=== PATIENT | male | born 1990 | race Caucasian/White ===

== ENCOUNTER 2017-07-28 14:26 | Emergency (ER) | payer OTHER ==
[2017-07-28] MEDS ORDERED: MORPHINE SULFATE 10 MG/ML INJ IV ONE ×2 (14:39→18:30)
[2017-07-28] MEDS ORDERED: ONDANSETRON HCL INJ/PF 4 MG/2 ML SDV IV ONE (14:39)
[2017-07-28] MEDS ORDERED: DEXAMETHASONE SOD PHOS INJ 10 MG/1 ML VIAL IV ONE (14:59)
[2017-07-28 15:20] LABS: ABSOLUTE BASOPHILS # (AUTO) 0.1 10^3/uL (0.0-0.2); ABSOLUTE LYMPHOCYTES (AUTO) 2.4 10^3/uL (0.5-4.7); ABSOLUTE MONOCYTES (AUTO) 2.4 10^3/uL (0.1-1.4); ABSOLUTE NEUT (AUTO) 13.4 10^3/uL (1.7-8.2); BASOPHILS % (AUTO) 0.3 % (0-2); EOSINOPHILS % (AUTO) 0.1 % (0-6); HEMATOCRIT 40.8 % (37.9-51.0); HEMOGLOBIN 14.3 g/dL (13.5-17.0); HGB HCT DIFFERENCE 2.1; LYMPHOCYTES % (AUTO) 13.3 % (13-45); MEAN CORPUSCULAR HEMOGLOBIN 32.3 pg (27.0-33.4); MEAN CORPUSCULAR VOLUME 92 fl (80-97); MONOCYTES % (AUTO) 12.9 % (3-13); RED BLOOD COUNT 4.42 10^6/uL (4.35-5.55); RED CELL DISTRIBUTION WIDTH 12.8 % (11.5-14.0); SEGMENTED NEUTROPHILS % (AUTO) 73.4 % (42-78); WHITE BLOOD COUNT 18.2 10^3/uL (4.0-10.5)
[2017-07-28 15:35] LABS: ANION GAP 17 (5-19); BLOOD UREA NITROGEN 9 mg/dL (7-20); CALCIUM 9.1 mg/dL (8.4-10.2); CARBON DIOXIDE 20 mmol/L (22-30); CHLORIDE 105 mmol/L (98-107); CREATININE RESULT 0.91 mg/dL (0.52-1.25); GLUCOSE 88 mg/dL (75-110); POTASSIUM 3.4 mmol/L (3.6-5.0); SODIUM 141.5 mmol/L (137-145)
--- NOTE | 2017-07-28 16:04 | RADIOLOGY REPORT (SQ) ---
EXAM DESCRIPTION: CT CERVICAL SPINE WITHOUT; CT HEAD WITHOUT COMPLETED DATE/TIME: 07/28/2017 3:24 pm REASON FOR STUDY: neck injury ; head and neck injury COMPARISON: None. TECHNIQUE: Axial images acquired through the brain and cervical spine without intravenous contrast. Images reviewed with brain, subdural, lung, soft tissue and bone windows. Reconstructed coronal and sagittal MPR images reviewed. Images stored on PACS. All CT scanners at this facility use dose modulation, iterative reconstruction, and/or weight based d osing when appropriate to reduce radiation dose to as low as reasonably achievable (ALARA). [facility]: Dose Right [facility]: CareDose [facility]: Dose Right [facility]: Teradose 4D [facility]: Smart [employer] RADIATION DOSE: CT Rad equipment meets quality standard of care and radiation dose reduction techniq ues were employed. CTDIvol: 17.7 mGy. DLP: 397 mGy-cm.; CT Rad equipment meets quality standard of ca re and radiation dose reduction techniques were employed. CTDIvol: 64.6 mGy. DLP: 1163 mGy-cm. mGy. LIMITATIONS: None. FINDINGS: Brain: No hemorrhage or mass or shift or hydrocephalus or fracture. No fluid levels in t he paranasal sinuses. Cervical spine: Normal alignment. No fracture or bone lesion. Soft tissues normal. Lung apices cl ear. IMPRESSION: 1. Normal CT brain. 2. Normal cervical spine CT. TECHNICAL DOCUMENTATION: JOB ID: [id number] Quality ID # [id number]: Final reports with documentation of one or more dose reduction techniques (e.g., Au tomated exposure control, adjustment of the mA and/or kV according to patient size, use of iterative reconstruction technique) 2010 [employer] - [employer]- All Rights Reserved
--- NOTE | 2017-07-28 16:04 | RADIOLOGY REPORT (SQ) ---
EXAM DESCRIPTION: CT CERVICAL SPINE WITHOUT; CT HEAD WITHOUT COMPLETED DATE/TIME: 07/28/2017 3:24 pm REASON FOR STUDY: neck injury ; head and neck injury COMPARISON: None. TECHNIQUE: Axial images acquired through the brain and cervical spine without intravenous contrast. Images reviewed with brain, subdural, lung, soft tissue and bone windows. Reconstructed coronal and sagittal MPR images reviewed. Images stored on PACS. All CT scanners at this facility use dose modulation, iterative reconstruction, and/or weight based d osing when appropriate to reduce radiation dose to as low as reasonably achievable (ALARA). [facility]: Dose Right [facility]: CareDose [facility]: Dose Right [facility]: Teradose 4D [facility]: Smart [employer] RADIATION DOSE: CT Rad equipment meets quality standard of care and radiation dose reduction techniq ues were employed. CTDIvol: 17.7 mGy. DLP: 397 mGy-cm.; CT Rad equipment meets quality standard of ca re and radiation dose reduction techniques were employed. CTDIvol: 64.6 mGy. DLP: 1163 mGy-cm. mGy. LIMITATIONS: None. FINDINGS: Brain: No hemorrhage or mass or shift or hydrocephalus or fracture. No fluid levels in t he paranasal sinuses. Cervical spine: Normal alignment. No fracture or bone lesion. Soft tissues normal. Lung apices cl ear. IMPRESSION: 1. Normal CT brain. 2. Normal cervical spine CT. TECHNICAL DOCUMENTATION: JOB ID: [id number] Quality ID # [id number]: Final reports with documentation of one or more dose reduction techniques (e.g., Au tomated exposure control, adjustment of the mA and/or kV according to patient size, use of iterative reconstruction technique) 2010 [employer]- All Rights Reserved
[2017-07-28] MEDS ORDERED: NORMAL SALINE 1000 ML 1,000 ML IV ONE (16:23)
--- NOTE | 2017-07-28 17:33 | RADIOLOGY REPORT (SQ) ---
EXAM DESCRIPTION: MRI CERVICAL SPINE WITHOUT COMPLETED DATE/TIME: 07/28/2017 5:20 pm REASON FOR STUDY: fall neck pain COMPARISON: None. TECHNIQUE: Sagittal and Axial imaging includes T1, T2, STIR and gradient echo sequences. LIMITATIONS: None. FINDINGS: ALIGNMENT: Normal. VERTEBRAE: Intact. BONE MARROW: Normal. No marrow replacement or reactive changes. DISCS: Detailed below. HARDWARE: None in the spine. CORD AND BASE OF BRAIN: Normal in size and signal intensity. SOFT TISSUES: No soft tissue masses. C1-C2: No significant spinal stenosis. C2-C3: No significant spinal stenosis or exit foraminal stenosis. C3-C4: Focal disc hernia, central to right paracentral. This extends superiorly, consistent with dis c extrusion. There is mass effect on the ventral aspect of the cord with overall moderate central ca nal narrowing. Uncovertebral spurring is present with at least mild right foraminal stenosis. C4-C5: No significant spinal stenosis or exit foraminal stenosis. C5-C6: No significant spinal stenosis or exit foraminal stenosis. C6-C7: No significant spinal stenosis or exit foraminal stenosis. C7-T1: No significant spinal stenosis or exit foraminal stenosis. UPPER THORACIC: Incompletely imaged. No significant spinal stenosis or exit foraminal stenosis. OTHER: No other significant finding. IMPRESSION: 1. Superiorly extending disc extrusion originates from the C3-4 level. There is associa janiya impingement on the cervical cord at the C3 level. 2. No fracture. No overt ligament injury. No spinal malalignment. TECHNICAL DOCUMENTATION: JOB ID: [id number] [employer]- All Rights Reserved
--- NOTE | 2017-07-28 18:25 | ER Document Report ---
ED General - General Chief Complaint: Neck Injury Stated Complaint: HEAD INJURY Time Seen by Provider: 07/28/17 14:38 TRAVEL OUTSIDE OF THE [place] IN LAST 30 DAYS: No - HPI Patient complains to provider of: Neck injury Notes: Patient coming in for evaluation of a neck injury. Patient was playing football when he jumped up to catch ball got flipped landed on his head injuring his neck. Patient states exquisite pain in his neck and bilateral shoulders. Denies any fever chills nausea vomiting diarrhea. Denies any loss of consciousness. - Related Data Allergies/Adverse Reactions: Penicillins Allergy (Mild, Verified 05/04/14 14:53) Hives Past Medical History - Social History Smoking Status: Current Every Day Smoker Frequency of alcohol use: None Drug Abuse: None Family History: Reviewed & Not Pertinent Patient has suicidal ideation: No Patient has homicidal ideation: No - Past Medical History Cardiac Medical History: Denies: Hx Coronary Artery Disease, Hx Heart Attack, Hx Hypertension Pulmonary Medical History: Denies: Hx Asthma, Hx Bronchitis, Hx COPD, Hx Pneumonia Neurological Medical History: Denies: Hx Cerebrovascular Accident, Hx Seizures Renal/ Medical History: Denies: Hx Peritoneal Dialysis Musculoskeltal Medical History: Denies Hx Arthritis - Immunizations Hx Diphtheria, Pertussis, Tetanus Vaccination: Yes Review of Systems - Review of Systems Constitutional: No symptoms reported EENT: Other - Neck pain Cardiovascular: No symptoms reported Respiratory: No symptoms reported Gastrointestinal: No symptoms reported Genitourinary: No symptoms reported Male Genitourinary: No symptoms reported Musculoskeletal: No symptoms reported Skin: No symptoms reported Hematologic/Lymphatic: No symptoms reported Neurological/Psychological: No symptoms reported -: Yes All other systems reviewed and negative Physical Exam - Vital signs Vitals: Temp Pulse Resp BP Pulse Ox 98.3 F 100 23 H 140/71 H 98 07/28/17 14:45 07/28/17 14:45 07/28/17 14:45 07/28/17 14:45 07/28/17 14:45 Interpretation: Normal - General General appearance: Appears well, Alert - HEENT Head: Normocephalic, Atraumatic Eyes: Normal Pupils: PERRL Neck: Other - Patient is c-collar - Respiratory Respiratory status: No respiratory distress Chest status: Nontender Breath sounds: Normal Chest palpation: Normal - Cardiovascular Rhythm: Regular Heart sounds: Normal auscultation Murmur: No - Abdominal Inspection: Normal Distension: No distension Bowel sounds: Normal Tenderness: Nontender Organomegaly: No organomegaly - Back Back: Normal, Nontender - Extremities General upper extremity: Normal inspection, Tender - Diffuse tenderness to bilateral biceps region., Normal color, Normal ROM, Normal temperature General lower extremity: Normal inspection, Nontender, Normal color, Normal ROM , Normal temperature, Normal weight bearing. 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 MRI was performed showing herniation of disc with some moderate compression of the central cord. Discussed with neurosurgery at [facility] Dr. Farhan Parisi states that this time patient continued to be transferred for further observation or discharged home to follow -up in their office. I discussed with patient patient feels comfortable on following up in the office. Patient is to return to the ER if symptoms worsen. Will discharge on pain medication and steroids. Patient was placed in soft collar. Neurosurgery information was given to the patient 07/28/17 18:32 Patient was able to the bathroom by himself prior to discharge. - Vital Signs Vital signs: Temp Pulse Resp BP Pulse Ox 98.3 F 100 15 138/59 H 97 07/28/17 14:45 07/28/17 14:45 07/28/17 18:00 07/28/17 16:34 07/28/17 17:31 - Laboratory Result Diagrams: 07/28/17 15:00 07/28/17 15:00 Laboratory results interpreted by me: 07/28/17 07/28/17 15:00 15:00 WBC 18.2 H Absolute Neutrophils 13.4 H Absolute Monocytes 2.4 H Potassium 3.4 L Carbon Dioxide 20 L Discharge - Discharge Clinical Impression: Cervical disc herniation, Neck pain Condition: Good Disposition: HOME, SELF-CARE Additional Instructions: The MRI of her neck does not show signs of herniated disc. More likely this is why you are having pain. Please take medications as prescribed. He may also take Tylenol Motrin for pain control. I discussed your case with Dr. Farhan Parisi neurosurgery at [facility]. Agrees and he can follow-up in their office please call them tomorrow. Return to ER for any other concerning issues. [facility] [place] [phone] , [place] [address] Prescriptions: Oxycodone HCl 5 mg PO Q6 #30 tablet Prednisone [Deltasone] 60 mg PO DAILY #24 tablet Forms: Return to Work
[2017-07-28] MEDS ORDERED: HYDROCODONE/ACETAMINOPHEN 5-325 MG 6 TAB/DSPK PO PRN (18:30)
[2017-07-28 18:59] VITALS: BP 160/83
== END 2017-07-28 18:59 | disposition home or self-care (01) ==
LOC: ER 14:26
DX: S09.90XA Unspecified injury of head, initial encounter (principal); S19.9XXA Unspecified injury of neck, initial encounter; M50.21 Other cervical disc displacement, high cervical region; M25.511 Pain in right shoulder; M25.512 Pain in left shoulder; X58.XXXA Exposure to other specified factors, initial encounter; Y93.61 Activity, american tackle football; F17.200 Nicotine dependence, unspecified, uncomplicated
CPT/HCPCS: 96376; 99284; 96374; 96375; 36415; 85025; 80048; 72141; 70450; 72125; L0172; L0120; J2270; J2405; J7030; J1100